=== PATIENT | female | born 1940 | race Caucasian/White ===

== ENCOUNTER → 2017-09-21 | Outpatient (CLI) | payer OTHER | LOC: RAD 01:18 | DX: Z12.31 Encounter for screening mammogram for malignant neoplasm of breast (principal) ==

== ENCOUNTER → 2018-09-30 | Outpatient (CLI) | payer OTHER | LOC: RAD 10:27 | DX: Z12.31 Encounter for screening mammogram for malignant neoplasm of breast (principal) ==

== ENCOUNTER → 2019-02-04 | Outpatient (CLI) | payer OTHER ==
[~2019-02-04] VITALS: Ht 162.6 cm; Wt 90.3 kg
[~2019-02-04] MED LIST: ASPIR 8181 MG PO; CALCIUM 500 +1 EAC5 PO; MOBIC7.5 MG PO; TRIAMTERENE-HC1 EAC3 PO; ZOCOR20 MG PO
[2019-02-04 07:16] VITALS: BP 147/74
--- NOTE | 2019-02-04 09:07 | TEE ---
[facility] [employer] [address] TRANSESOPHAGEAL ECHOCARDIOGRAM Name: DONI SOLIZ Room #: REG CL [facility]#: [id number] ������������� Admission: 02/04/19 ������������� Attend Phys: Clint Dover, Discharge: ��� ������������� ��� Date of : 42 Date of Service: 02/04/19 0907 �� Report #: [id number] �������� ��������������������������������������������[id number] THIS REPORT FOR: //name// APPROVED REPORT Study performed: 02/04/2019 07:58:16 EXAM: Comprehensive 2D, Doppler, and color-flow Echocardiogram Patient Location: Out-Patient Room #: 9 Status: routine BSA: 1.95 HR: 91 bpm BP: 171/91 mmHg Rhythm: NSR Other Information Study Quality: Good Indications Aortic Valve Disease Echo Enhancing Agent Indication: Rule out Shunt Agent(s) / Amount(s) Used: Agitated Saline 7 cc Procedure After obtaining informed consent, patient underwent transesophageal echo in the [employer]. Type of Sedation : Conscious Sedation Sedation was achieved intravenously with: Versed (4 mg) Fentanyl (100 mcg) Transesophageal probe was inserted and advanced into esophagus without difficulty by Clint Dover MD. Echo enhancement indication: R/O Septal defect. Echo enhancement agent administered: Agitated Saline The JOSE was performed without complications. Throughout the procedure, the blood pressure, pulse oximetry, cardiac rhythm, and rate were monitored. The patient tolerated the procedure without adverse effects. Recovery from conscious sedation was uneventful and vital signs were stable. Left Ventricle [facility] [address] [place] [address] TRANSESOPHAGEAL ECHOCARDIOGRAM Name: DONI SOLIZ Room #: REG [facility]#: [id number] ������������� Admission: 02/04/19 ������������� Attend Phys: Clint Dover, Discharge: ��� ������������� ��� Date of : 42 Date of Service: 02/04/19 0907 �� Report #: [id number] �������� ��������������������������������������������[id number] The left ventricle is normal size. There is normal LV segmental wall motion. There is normal left ventricular wall thickness. The left ventricular systolic function is normal. The left ventricular ejection fraction is within the normal range. LVEF is 55-60%. Right Ventricle The right ventricle is normal size. The right ventricular systolic function is normal. Atria Left atrium is mildly dilated. No thrombus is visualized in the left atrium or appendage. No shunting by contrast bubble injection Right atrium is mildly dilated. Aortic Valve Aortic valve is calcified, trileaflet and severely stenotic. LVOT diameter 2.1cm Mild aortic regurgitation. Severe aortic stenosis. Mitral Valve Mild mitral annular calcification Mild mitral regurgitation. No evidence of mitral valve stenosis. Tricuspid Valve The tricuspid valve is normal in structure. Moderate to moderately severe tricuspid regurgitation. Pulmonic Valve The pulmonary valve is normal in structure. There is no pulmonic valvular regurgitation. Great Vessels The aortic root is normal in size. The ascending aorta is normal in size. IVC is normal in size and collapses >50% with inspiration. Pericardium There is no pericardial effusion. <Conclusion> The left ventricular systolic function is normal. There is normal LV segmental wall motion. LVEF is 55-60%. Both atria are mildly dilated. No shunting by contrast bubble injection No thrombus is visualized in the left atrium or appendage. [facility] [address] [place] [address] TRANSESOPHAGEAL ECHOCARDIOGRAM Name: DONI SOLIZ Room #: REG CL [facility]#: [id number] ������������� Admission: 02/04/19 ������������� Attend Phys: Clint Dover, Discharge: ��� ������������� ��� Date of : 42 Date of Service: 02/04/19906 �� Report #: [id number] �������� ��������������������������������������������[id number] Aortic valve is calcified, trileaflet and severely stenotic. Mild aortic regurgitation. Mild mitral annular calcification. Mild mitral regurgitation. Moderate to moderately severe tricuspid regurgitation. The ascending aorta is normal in size. There is no pericardial effusion. ��������������������������������������������� <ELECTRONICALLY SIGNED> ���������������������������������������� By: Clint Dover MD, [facility] ��������������������������������������������� 02/04/19906 6 6 Clint Dover MD, [facility] /INF
--- NOTE | 2019-02-04 09:14 | CATHLAB ---
[facility] [address] [place] [address] INVASIVE PROCEDURE REPORT Name: DONI SOLIZ [facility] #: [facility] [id number] ������������� Admission: 02/04/19 ������������� Attend Phys: Clint Dover, Discharge: ��� ������������� ��� Date of : 42 Date of Service: 02/04/19 0914 �� Report #: [id number] �������� ��������������������������������������������[id number] THIS REPORT FOR: //name// APPROVED REPORT Study performed: 02/04/2019 07:22:25 Patient Details Patient Status: Out-Patient Room #: The patient is a 78 year-old female Event Personnel Clint Dover Dot Net Architect, Aniceto Ybarra RN RN, Joanie Alfaro Monitor, Sidney Manley RTR Scrub Procedures Performed Art Access - R femoral artery* Coronary Angiography Only [id number] CORANG Supravalvular Aortography Injection [id number] ISVA Hemostasis w/ Mynx Indication Valvular heart disease Procedure Narrative The patient was brought electively to the Cardiac Catheterization Laboratory and was prepped and draped in a sterile manner. The Right Groin^ was infiltrated with 1% Lidocaine subcutaneous anesthesia. A PINNACLE 6FR Sheath #[id number] sheath was inserted into the RFA^. Coronary angiography was performed using coronary diagnostic catheters. The right coronary system was accessed and visualized with a JR 4 catheter. The left coronary system was accessed and visualized with a JL 4 catheter. An aortogram of the ascending aorta was performed. Closure device was deployed with a 6 Fr Mynx. The patient tolerated the procedure well and there were no complications associated with the procedure. There was no hematoma. Fluoro Time: 1.50 minutes Dose: DAP 3209.00 cGycm2 416 mGy Contrast Type and Amount: Omnipaque 100 ml Coronary Angiography The patient's coronary anatomy is right dominant. Diagnostic Cath Left Main Normal left main [facility] [place] [address] INVASIVE PROCEDURE REPORT Name: DONI SOLIZ Room #: REG [facility]#: [id number] ������������� Admission: 02/04/19 ������������� Attend Phys: Clint Dover, Discharge: ��� ������������� ��� Date of : 42 Date of Service: 02/04/19 0914 �� Report #: [id number] �������� ��������������������������������������������[id number] LAD Normal left anterior descending Diagonal 1 Normal first diagonal branch, moderately large Circumflex Large, angiographically normal circumflex. OM1 Normal first marginal branch OM2 Several small distally arising marginal branches, angiographically normal Right Coronary Dominant right coronary, angiographically normal R PDA Large posterior descending branch, angiographically normal RPLV Large posterolateral branch, angiographically normal Ramus Large ramus branch, angiographically normal Left Ventriculography Left Ventriculography was not performed. Ejection Fraction was 60-65% based off patient's Echocardiogram. Mild aortic insufficiency. Trileaflet and heavily calcified aortic valve. Normal caliber ascending aorta, no dissection Hemodynamics The aortic pressure is 129/70 mmHg with a mean of 97 mmHg. Conclusion 1. Normal left main 2. Normal coronary vasculature. Right coronary dominant circulation. 3. Severe calcific aortic stenosis, trileaflet valve. Mild aortic insufficiency 4. Normal caliber of ascending aorta Recommendations Valve Surgery ��������������������������������������������� <ELECTRONICALLY SIGNED> ���������������������������������������� By: Clint Dover MD, [facility] ��������������������������������������������� 02/04/19913 3 3 Clint Dover MD, FACC /INF
--- NOTE | 2019-02-05 10:49 | EKG ---
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 : 1940 Requested By: Clint Dover Order Number: [id number] MD: Clint Dover Measurements Intervals [place] Rate: 89 P: 63 PA: 176 QRS: -7 QRSD: 110 T: 63 QT: 364 QTc: 443 Interpretive Statements Sinus rhythm Normal tracing No previous ECG available for comparison Electronically Signed On 02-05-2019 10:49:25 CDT by Clint Dover [email or web address] ��������������������������������������������� <ELECTRONICALLY SIGNED> ���������������������������������������� By: Clint Dover MD, [facility] ��������������������������������������������� 02/05/19 1049 0746 0746 Clint Dover MD, FACC /EPI
== END | disposition home or self-care (01) ==
LOC: CATH 06:36
DX: I08.3 Combined rheumatic disorders of mitral, aortic and tricuspid valves (principal); I10 Essential (primary) hypertension; E78.5 Hyperlipidemia, unspecified; F41.9 Anxiety disorder, unspecified; Z88.2 Allergy status to sulfonamides; Z88.8 Allergy status to other drugs, medicaments and biological substances; Z79.899 Other long term (current) drug therapy; Z98.890 Other specified postprocedural states; Z87.891 Personal history of nicotine dependence; Z79.82 Long term (current) use of aspirin

== ENCOUNTER → 2020-01-18 | Outpatient (CLI) | payer OTHER | LOC: SJCVC 13:29 | PROVIDERS: ATTEND Internal Medicine | DX: I35.0 Nonrheumatic aortic (valve) stenosis (principal); I10 Essential (primary) hypertension; I47.1 Supraventricular tachycardia; I65.23 Occlusion and stenosis of bilateral carotid arteries; E78.5 Hyperlipidemia, unspecified; Z95.3 Presence of xenogenic heart valve; Z95.4 Presence of other heart-valve replacement; Z82.49 Family history of ischemic heart disease and other diseases of the circulatory system; Z87.891 Personal history of nicotine dependence; Z79.82 Long term (current) use of aspirin; Z79.899 Other long term (current) drug therapy ==

== ENCOUNTER → 2020-05-22 | Outpatient (CLI) | payer OTHER | LOC: SJCVC 10:07 | PROVIDERS: ATTEND Internal Medicine | DX: I13.0 Hypertensive heart and chronic kidney disease with heart failure and stage 1 through stage 4 chronic kidney disease, or unspecified chronic kidney disease (principal); N18.2 Chronic kidney disease, stage 2 (mild); I50.32 Chronic diastolic (congestive) heart failure; I35.0 Nonrheumatic aortic (valve) stenosis; I47.1 Supraventricular tachycardia; I65.23 Occlusion and stenosis of bilateral carotid arteries; E78.5 Hyperlipidemia, unspecified; Z95.3 Presence of xenogenic heart valve ==

== ENCOUNTER → 2020-07-13 | Outpatient (CLI) | payer OTHER | LOC: SJCVC 13:08 | PROVIDERS: ATTEND Internal Medicine | DX: R00.1 Bradycardia, unspecified (principal); I35.0 Nonrheumatic aortic (valve) stenosis; I13.0 Hypertensive heart and chronic kidney disease with heart failure and stage 1 through stage 4 chronic kidney disease, or unspecified chronic kidney disease; N18.2 Chronic kidney disease, stage 2 (mild); I50.32 Chronic diastolic (congestive) heart failure; E78.5 Hyperlipidemia, unspecified; I47.1 Supraventricular tachycardia; I65.23 Occlusion and stenosis of bilateral carotid arteries; Z95.3 Presence of xenogenic heart valve; Z79.82 Long term (current) use of aspirin; Z79.899 Other long term (current) drug therapy; Z82.49 Family history of ischemic heart disease and other diseases of the circulatory system; Z87.891 Personal history of nicotine dependence ==

== ENCOUNTER → 2021-04-18 | Outpatient (CLI) | payer OTHER | LOC: SJCVCIMAG 08:51 | PROVIDERS: ATTEND Internal Medicine | DX: I08.8 Other rheumatic multiple valve diseases (principal); R00.1 Bradycardia, unspecified; I13.0 Hypertensive heart and chronic kidney disease with heart failure and stage 1 through stage 4 chronic kidney disease, or unspecified chronic kidney disease; N18.2 Chronic kidney disease, stage 2 (mild); I50.32 Chronic diastolic (congestive) heart failure; E78.5 Hyperlipidemia, unspecified; I47.1 Supraventricular tachycardia; I65.23 Occlusion and stenosis of bilateral carotid arteries; M19.90 Unspecified osteoarthritis, unspecified site; Z95.3 Presence of xenogenic heart valve; Z87.891 Personal history of nicotine dependence; Z79.82 Long term (current) use of aspirin; Z79.899 Other long term (current) drug therapy; Z72.89 Other problems related to lifestyle; Z88.2 Allergy status to sulfonamides; Z88.8 Allergy status to other drugs, medicaments and biological substances ==